=== PATIENT | male | born 1970 | race Caucasian/White ===

== ENCOUNTER 2024-07-10 12:02 | Outpatient (CLI) | payer OTHER | END 2024-07-10 12:03 | disposition home or self-care (01) | LOC: RAD 12:02 | PROVIDERS: ATTEND Internal Medicine | DX: Z02.71 Encounter for disability determination (principal); M43.17 Spondylolisthesis, lumbosacral region; M51.379 Other intervertebral disc degeneration, lumbosacral region without mention of lumbar back pain or lower extremity pain | CPT/HCPCS: 72100 ==